=== PATIENT | female | born 1995 | race Caucasian/White ===

== ENCOUNTER 2018-03-18 10:33 | Emergency (ER) | END 2018-03-18 13:39 | disposition home or self-care (01) ==

== ENCOUNTER 2018-03-20 10:43 | Emergency (ER) | END 2018-03-20 14:02 | disposition home or self-care (01) ==

== ENCOUNTER 2018-07-08 11:21 | Emergency (ER) | END 2018-07-08 12:32 | disposition home or self-care (01) ==

== ENCOUNTER → 2019-04-01 | Emergency (ER) | payer OTHER ==
[~2019-04-01] VITALS: Ht 160 cm; Wt 80.0 kg
[~2019-04-01] MED LIST: AMOX1TAB10 PO; FIORICET PO; IBUP-1542 PO; LEVO750T25 PO; NAPR-985 PO; NPH10OT RIGHT EAR; PENI500T PO; PSEU30TA38 PO
[2019-04-01 09:50] VITALS: BP 130/78; PULSE 80; RESP 18; Ht 160 cm; Wt 80.0 kg
--- NOTE | 2019-04-01 10:07 | ERD ---
ER Documentation Chief Complaint Chief Complaint right ear pain HPI 24-year-old female presenting with right ear pain. Patient states is been going for last 2 days. Has had a runny nose and mild cough. No fevers. Took Advil 6 hours ago with mild alleviation of pain however pain is returned. Has never had this before. Denies medical problems. NKDA. Surgical history denies. Social history denies ROS All systems reviewed and are negative except as per history of present illness. Medications Home Meds Active Scripts Neomycin/Polymyxin/Hydrocort* (Cortisporin* Otic) 10 Ml Susp, 4 DROP RIGHT EAR QID for 7 Days, EA Prov:NANCY MOHR PA-C 04/01/19 Amoxicillin/Potassium Clav (Amox-Clav 875-125 mg Tablet) 875-125 mg Tab, 1 TAB PO BID for 7 Days, #14 TAB Prov:NANCY MOHR PA-C 04/01/19 Ibuprofen* (Motrin*) 600 Mg Tab, 600 MG PO Q8 for 5 Days, #15 TAB Prov:EAMON OWUSU MD 07/08/18 Penicillin V Potassium* (Penicillin V K*) 500 Mg Tab, 500 MG PO Q8 for 10 Days, TAB Prov:EAMON OWUSU MD 07/08/18 Pseudoephedrine Hcl* (Pseudoephedrine Hcl*) 30 Mg Tablet, 30 MG PO Q6 PRN for CONGESTION, #30 TAB Prov:NANCY MOHR PA-C 03/20/18 Levofloxacin* (Levaquin*) 750 Mg Tablet, 750 MG PO DAILY for 5 Days, TAB Prov:NANCY MOHR PA-C 03/20/18 Acetamin/Butalbital/Caffeine* (Fioricet*) [id number] Tab, 1 TAB PO Q6H PRN for PAIN, #30 TAB Prov:MICHAEL CUNNINGHAM PA-C 03/18/18 Naproxen* (Naprosyn*) 500 Mg Tablet, 500 MG PO BID PRN for PAIN AND/OR INFLAMMATION, #30 TAB Prov:MICHAEL CUNNINGHAM PA-C 03/18/18 Allergies Allergies: Coded Allergies: No Known Allergy (Unverified , 03/20/18) PMhx/Soc History of Surgery: No Anesthesia Reaction: No Hx Neurological Disorder: No Hx Respiratory Disorders: No Hx Cardiac Disorders: No Hx Psychiatric Problems: No Hx Miscellaneous Medical Probl: No Hx Alcohol Use: No Hx Substance Use: No Hx Tobacco Use: Yes Smoking Status: Current every day smoker FmHx Family History: No diabetes, No coronary disease, No other Physical Exam Vitals Vital Signs Date Temp Pulse Resp B/P (MAP) Pulse Ox O2 O2 Flow FiO2 Time Delivery Rate 04/01/19 97.7 80 18 130/78 99 09:50 (95) Physical Exam GENERAL: The patient is well-appearing, well-nourished, in no acute distress HEENT: Atraumatic. Conjunctivae are pink. Pupils equal, round, and reactive to light. There is no scleral icterus. Tympanic membrane erythematous the right side with mild bulging. Erythema noted to the external ear canal with positive tragal tenderness.. Oropharynx clear. No nystagmus or photophobia. NECK: C-spine is soft and supple. There is no meningismus. There is no cervical lymphadenopathy. CHEST: Clear to auscultation bilaterally. There are no rales, wheezes or rhonchi. HEART: Regular rate and rhythm. No murmurs, clicks, rubs or gallops. Procedures/MDM MDM: 24-year-old female presenting with right ear pain. Patient exam is concerning for both otitis media and otitis externa so we will treat with oral antibiotics in addition to antibiotic otic drops. I have low suspicion for retained foreign body. I have low suspicion for mastoiditis. I have low suspicion for perforated tympanic membranes. I have low suspicion for bacterial sinusitis. Patient is discharged with strict ER precautions and told to follow- up with primary care. Patient is told symptoms change or worsen to return immediately to the ER. All questions answered at discharge Departure Diagnosis: Primary Impression: Right ear pain Condition: Stable Patient Instructions: Otitis Media, Abx Tx (Adult), External Ear Infection (Adult) Referrals: IVONNE PEREZ MD (PCP) Additional Instructions: FOLLOW UP WITH YOUR PRIMARY CARE PHYSICIAN TOMORROW.Return to this facility if you are not improving as expected. NANCY MOHR PA-C Apr 01, 2019 10:07
== END | disposition home or self-care (01) ==
LOC: FTE 09:49
DX: H92.01 Otalgia, right ear (principal); F17.210 Nicotine dependence, cigarettes, uncomplicated
CPT/HCPCS: 99283

== ENCOUNTER 2019-06-12 07:25 | Emergency (ER) | payer OTHER ==
[~2019-06-12] VITALS: Ht 167.6 cm; Wt 91.0 kg
[~2019-06-12 07:25] MED LIST changes: +CEPH-443 PO; +CPR3OO3.5 RIGHT EYE; +LORA-441 PO; +PHEN-538 PO
[2019-06-12 07:31] VITALS: BP 113/57; PULSE 86; RESP 20; Ht 167.6 cm; Wt 91.0 kg
[2019-06-12] MEDS ORDERED: LORAZEPAM 1 MG TAB PO ONE (08:00)
== END 2019-06-12 09:09 | disposition home or self-care (01) ==
LOC: FTE 07:25
DX: F41.9 Anxiety disorder, unspecified (principal); Z87.891 Personal history of nicotine dependence
CPT/HCPCS: 71046; 81025; 93005; Z7502; Z7610

== ENCOUNTER 2019-06-16 03:07 | Emergency (ER) | payer OTHER ==
[~2019-06-16] VITALS: Ht 167.6 cm; Wt 89.9 kg
[2019-06-16 03:09] VITALS: BP 116/71; PULSE 91; RESP 19; Ht 167.6 cm; Wt 89.9 kg
== END 2019-06-16 04:58 | disposition home or self-care (01) ==
LOC: FTE 03:07
DX: H10.9 Unspecified conjunctivitis (principal); Z32.02 Encounter for pregnancy test, result negative
CPT/HCPCS: 81025; Z7502; 99283